=== PATIENT | female | born 1995 | race Hispanic/Latino ===

== ENCOUNTER 2017-01-10 13:13 | Emergency (ER) | payer OTHER ==
[~2017-01-10] VITALS: Ht 157.5 cm; Wt 56.7 kg
[2017-01-10] MEDS ORDERED: NS 1,000 ML IV ONE (14:15)
[2017-01-10] MEDS ORDERED: ONDANSETRON 4MG/2ML VIAL (J2405) IV ONE (14:15)
[2017-01-10 15:29] LABS: BASO % 0.1 % (0.0-1.0); EOS # 0.1 K/mm3 (0.0-0.50); EOS % 0.7 % (0.0-3.0); LARGE UNSTAINED CELL # 0.1 K/mm3 (0.0-0.4); LARGE UNSTAINED CELL % 0.5 % (0.0-4.0); LYMPH % 8.8 % (24.0-44.0); MEAN CORPUSCULAR HEMOGLOBIN 32.4 pg (27.0-33.0); MEAN CORPUSCULAR VOLUME 92.5 fl (80.0-96.0); MONO # 0.3 K/mm3 (0.0-0.8); MONO % 2.7 % (0.0-5.0); NEUTROPHILS % 87.1 % (36.0-66.0); PLATELET COUNT, AUTOMATED 297 k/mm3 (150-450); RED CELL DISTRIBUTION WIDTH 12.4 % (11.5-14.5); WHITE BLOOD COUNT 10.3 K/mm3 (4.0-10.0)
[2017-01-10 15:47] LABS: ALBUMIN 3.9 GM/DL (3.2-5.2); ALBUMIN/GLOBULIN RATIO 1.08 (1.00-1.93); ALKALINE PHOSPHATASE 53 U/L (45-117); ALT/SGPT 12 U/L (12-78); ANION GAP 13 MEQ/L (8-16); AST/SGOT 16 U/L (15-37); BILIRUBIN,DIRECT 0.1 MG/DL (0.0-0.2); BILIRUBIN,TOTAL 0.6 MG/DL (0.2-1.0); BLOOD UREA NITROGEN 7 MG/DL (7-18); CALCIUM LEVEL 8.6 MG/DL (8.5-10.1); CARBON DIOXIDE LEVEL 21 MEQ/L (21-32); CHLORIDE LEVEL 105 MEQ/L (98-107); CREATININE FOR GFR 0.46 MG/DL (0.55-1.02); GLOMERULAR FILTRATION RATE > 60.0 (>60); GLUCOSE, FASTING 80 MG/DL (70-105); POTASSIUM SERUM 4.1 MEQ/L (3.5-5.1); SODIUM LEVEL 139 MEQ/L (136-145); TOTAL PROTEIN 7.5 GM/DL (6.4-8.2)
[2017-01-10] MEDS ORDERED: ZOFR4TAB3 PO (15:54)
[2017-01-10] MEDS ORDERED: METR500T10 PO (15:56)
[2017-01-10 16:00] VITALS: BP 123/76
--- NOTE | 2017-01-11 07:38 | REP ---
OB ULTRASOUND: Real-time sonographic evaluation of the gravid uterus is performed utilizing transabdominal and endovaginal technique. There is a single living intrauterine gestation with an estimated gestational age of 6 weeks 3 days based on a crown-rump length of 6 mm. EDC 09/02/2017. heart rate 109 beats per minute. There is no subchorionic hemorrhage. Cystic structure of the right ovary probably represents a corpus luteum with a maximum diameter of 2.1 cm. This cystic structure is complex. There is no evidence of ovarian torsion with blood flow seen in each ovary with duplex Doppler evaluation. Signed by Cheng Ritter MD 01/11/2017 04:09 P
== END 2017-01-10 16:40 | disposition home or self-care (01) ==
LOC: M ED 14:27
DX: O23.591 Infection of other part of genital tract in pregnancy, first trimester (principal); Z3A.01 Less than 8 weeks gestation of pregnancy; O99.281 Endocrine, nutritional and metabolic diseases complicating pregnancy, first trimester; E28.2 Polycystic ovarian syndrome; Z87.891 Personal history of nicotine dependence
CPT/HCPCS: 76801; 76817; 80048; 80076; 81001; 83690; 84702; 85025; 87210; 87491; 87591; 93976; 96361; 96374; 99283; J2405

== ENCOUNTER → 2017-03-26 | Outpatient (CLI) | payer OTHER ==
[~2017-03-26] MED LIST: METR500T10 PO; ZOFR4TAB3 PO
[2017-03-26 18:08] LABS: BASO % 0.4 % (0.0-1.0); EOS # 0.1 K/mm3 (0.0-0.50); EOS % 0.8 % (0.0-3.0); LARGE UNSTAINED CELL # 0.1 K/mm3 (0.0-0.4); LARGE UNSTAINED CELL % 0.9 % (0.0-4.0); LYMPH # 1.6 K/mm3 (1.5-6.5); LYMPH % 19.1 % (24.0-44.0); MEAN CORPUSCULAR HEMOGLOBIN 32.6 pg (27.0-33.0); MEAN CORPUSCULAR HGB CONC 33.3 g/dl (32.0-36.5); MONO # 0.4 K/mm3 (0.0-0.8); MONO % 4.4 % (0.0-5.0); NEUTROPHILS # 6.3 K/mm3 (1.8-7.7); NEUTROPHILS % 74.5 % (36.0-66.0); PLATELET COUNT, AUTOMATED 295 k/mm3 (150-450); RED CELL DISTRIBUTION WIDTH 12.8 % (11.5-14.5); WHITE BLOOD COUNT 8.5 K/mm3 (4.0-10.0)
[2017-03-29 12:27] LABS: HBsAg Prenatal NEGATIVE (NEGATIVE)
== END ==
LOC: M SMT 14:19
PROVIDERS: ATTEND Advanced Practice Midwife
DX: Z34.81 Encounter for supervision of other normal pregnancy, first trimester (principal); Z36 Encounter for antenatal screening of mother; Z3A.00 Weeks of gestation of pregnancy not specified

== ENCOUNTER → 2017-04-07 | Outpatient (CLI) | payer OTHER ==
--- NOTE | 2017-04-07 21:27 | REP ---
Clinical: Anatomical evaluation. Comparison: 01/10/2017 . Findings: Examination demonstrates a single live intrauterine in cephalic presentation. motion is identified by technologist. Placenta is noted posteriorly and grade zero without evidence for placenta previa or abruption. Amniotic fluid volume is normal. Cervix measures 3.3 cm in length and appears closed. No evidence for nuchal cord. Gestational age by LMP 18 weeks 4 days with GIULIA 09/04/2017 . Gestational age by current measurements 19 weeks 2 days with GIULIA 08/30/2017 . FHR equals 147 beats per minute. BPD 4.4 cm 19 weeks 3 days HC 16.6 cm 19 weeks 2 days AC 13.6 cm 19 weeks 1 day FL 3.1 cm 18 weeks 3 days HL 2.9 cm 19 weeks 2 days HC/AC ratio 1.22 Estimated weight 283 grams ( 72nd percentile). Anatomical assessment demonstrates normal structures including cranium, choroid plexus, cavum, cerebellum/posterior fossa, facial features, lungs, four-chamber heart/ventricular outflow tracts, diaphragm, stomach, cord insertion/three-vessel cord, kidneys/bladder, spine, and extremities. Impression: 1. Single live intrauterine in cephalic presentation demonstrating appropriate interval growth. 2. Anatomical assessment is complete and normal. Signed by Reggie Mejias MD 04/07/2017 09:19 P
== END ==
LOC: M RAD 10:37
PROVIDERS: ATTEND Advanced Practice Midwife
DX: Z36 Encounter for antenatal screening of mother (principal)

== ENCOUNTER → 2017-04-12 | Outpatient (CLI) | payer OTHER | LOC: M SMT 15:41 | PROVIDERS: ATTEND Advanced Practice Midwife | DX: Z36 Encounter for antenatal screening of mother (principal); Z3A.00 Weeks of gestation of pregnancy not specified ==

== ENCOUNTER → 2017-06-02 | Outpatient (CLI) | payer OTHER ==
[~2017-06-02] MED LIST changes: +ACET50TA PO; +COLA100C5 PO; +IBUP-1114 PO; +METR1TAB66 PO; -METR500T10 PO; +PRENTAB9 PO
[2017-06-02 13:18] LABS: MEAN CORPUSCULAR HEMOGLOBIN 32.4 pg (27.0-33.0); MEAN CORPUSCULAR HGB CONC 33.7 g/dl (32.0-36.5); MEAN CORPUSCULAR VOLUME 96.1 fl (80.0-96.0); RED CELL DISTRIBUTION WIDTH 12.8 % (11.5-14.5)
[2017-06-02 13:43] LABS: FREE T4 0.99 NG/DL (0.76-1.46)
== END ==
LOC: M SMT 10:29
PROVIDERS: ATTEND Advanced Practice Midwife
DX: Z34.82 Encounter for supervision of other normal pregnancy, second trimester (principal); Z36 Encounter for antenatal screening of mother; Z3A.00 Weeks of gestation of pregnancy not specified

== ENCOUNTER → 2017-08-04 | Outpatient (REF) | payer OTHER | LOC: M LAB REF 13:02 | PROVIDERS: ATTEND Advanced Practice Midwife | DX: Z34.03 Encounter for supervision of normal first pregnancy, third trimester (principal); Z36 Encounter for antenatal screening of mother; Z3A.00 Weeks of gestation of pregnancy not specified ==

== ENCOUNTER 2017-08-30 13:03 | Outpatient (RCR) | payer OTHER ==
[~2017-08-30 13:03] MED LIST changes: -ACET50TA PO; -COLA100C5 PO; -IBUP-1114 PO; -PRENTAB9 PO
[2017-09-07] MEDS ORDERED: PRENTAB9 PO (10:31)
[2017-09-07] MEDS ORDERED: COLA100C5 PO (10:34)
[2017-09-07] MEDS ORDERED: IBUP-1114 PO (10:34)
[2017-09-07] MEDS ORDERED: ACET50TA PO (10:34)
== END 2017-09-07 | disposition home or self-care (01) ==
LOC: M OT 13:03
PROVIDERS: ATTEND Nurse Practitioner Family
DX: Z51.89 Encounter for other specified aftercare (principal); R20.2 Paresthesia of skin

== ENCOUNTER 2017-09-05 11:14 | Inpatient (IN) | payer OTHER ==
[2017-09-05] VITALS (40 sets, daily range): BP systolic 80–131; BP diastolic 45–78
[~2017-09-05] VITALS: Ht 157.5 cm; Wt 78.6 kg
[2017-09-05] MEDS ORDERED: LACTATED RINGER'S 1000 ML IV STA (11:43)
[2017-09-05 12:16] LABS: MEAN CORPUSCULAR HEMOGLOBIN 30.3 pg (27.0-33.0); MEAN CORPUSCULAR HGB CONC 34.7 g/dl (32.0-36.5); MEAN CORPUSCULAR VOLUME 87.3 fl (80.0-96.0); PLATELET COUNT, AUTOMATED 276 10^3/uL (150-450); RED CELL DISTRIBUTION WIDTH 13.5 % (11.5-14.5)
--- NOTE | 2017-09-05 13:02 | HPEPDOC ---
Obstetrical History & Physical General Date of Admission Sep 05, 2017 at 11:50 History of Present Illness Patient is a 22-year-old female who is a at 40.1 weeks gestation with an GIULIA of 09/04/17 based off of her LMP and and consistent with her 1st trimester ultrasound. She initiated care in her 1st trimester at [facility]. Her has been uncomplicated. She presents to L&D with complaints of contractions since 1000 this morning. Reports active movement. Denies leaking of fluid and vaginal bleeding. Chief Complaint: Active Labor Information Provided By: Patient Age: 22 : 1 Term: 0 Pre-term: 0 Abortions: 0 Livin Care Care: Good Care Dating Final EDC: Sep 04, 2017 Final EDC by: LMP LMP: Nov 28, 2016 EGA at Admission: 40.1 Antepartum Course Height (inches): 62 Pre- weight (lbs.): 125 Admission Weight (lbs.): 173 Change in Weight (lbs.): 48 Past Medical History Past Obstetrical History : Past Obstetrical History: Primgravida [employer] History: History of STD (hx of chlamydia) Past Medical History Medical History varicella as a child Surgical History: Denies/None Family History Significant Family History: No pertinent family hx Social History Marital Status: Single Family situation: Spouse/partner home Psychosocial History: Depression * Smoker: non-smoker Alcohol: Denies Drugs: denies Allergies Coded Allergies: No Known Allergies (Unverified , 01/10/17) Physical Examination Physical Examination GENERAL: Alert and oriented times three. BREAST: . ABDOMEN: Gravid and non-tender to touch. FETUS: Is vertex (VTX) by sterile vaginal examination (SVE), fetus is vertex ( VTX) by Olman. HEART RATE: Regular rate and rhythm. LUNGS: Clear to auscultation (CTA). EXTREMITIES: No edema. No clonus. Laboratory Data Urine Culture: No Growth Pertinent Laboratoy Data Blood Type: A+ RBC Antibody Screen: Negative HIV: Negative Hepatitis C: Negative Rapid Plasma Reagin: Nonreactive Rubella: Immune Chlamydia/Gonorrhea: Negative Group B Streptococcus: Negative Quad Screen Test: Negative Glucose Tolerance Test: 81 Vaginal Examination Dilation: 5 cm Effacement: 80+% Station: -1 Cervical Consistency: Soft Cervical Position: Middle Presentation: Cephalic presentation Position: Vertex (occiput) Assessment Heart Rate (FHR): 150 Variability: Moderate Accelerations: Positive Decelerations: None Tocometer Contractions: Yes Frequency: other (1 TO 4 MINUTES) Multi-drug resistant Organism: No history of MDRO Assessment/Plan Assessment IUP at 40.1 weeks gestation active labor at term Negative GBS Category I FHR tracing Plan Admit to L&D. OOB ad gage. Diet: clears Group B Streptococcus (GBS) negative. Labs and intravenous (IV) per unit protocol. Lactated Ringers (LR): per order. Anesthesia consult. Anticipate normal spontaneous delivery (). YECENIA CHUN CNM Sep 05, 2017 13:02
[2017-09-05] MEDS ORDERED: FENTANYL 2MCG/ML ROPIVACAINE 0.2% IN 0.9% NACL 200ML IVBAG As Ordered ONE (13:06)
[2017-09-05] MEDS ORDERED: REFRIGERATOR IV KEYS XX PRN (15:15)
[2017-09-05] MEDS ORDERED: ONDANSETRON 4MG/2ML VIAL (J2405) IV PRN (15:15)
[2017-09-05] MEDS ORDERED: LACTATED RINGER'S 1000 ML IV PRN (15:15)
[2017-09-05] MEDS ORDERED: EPIDURAL/PCA KEYS XX PRN (15:15)
[2017-09-05] MEDS ORDERED: diphenhydrAMINE INJ 50MG/ML VIAL (J1200) IV PRN (15:15)
[2017-09-05] MEDS ORDERED: EPIDURAL COMMENT XX SCH (15:15)
[2017-09-05] MEDS ORDERED: NALOXONE INJ 0.4 MG/1 ML VIAL (J2310) IV PRN (15:15)
[2017-09-05] MEDS ORDERED: FENTANYL/ROPIVACAINE/NACL BAG 200 ML EPIDURAL SCH (15:15)
[2017-09-05] MEDS: ePHEDrine SULFATE 25 MG/5 ML(5MG/ML) SYRINGE IV PRN ×4 (15:19→18:27)
[2017-09-05] MEDS ORDERED: OXYTOCIN DRIP 30 UNITS in APPROPRIATE DILUENT 1 EA IV SCH ×2 (16:15→21:40)
[2017-09-05] MEDS: LR 1,000 ML IV SCH ×2 (16:22→18:27)
--- NOTE | 2017-09-05 16:35 | IPNPDOC ---
Text Note Date of Service The patient was seen on 09/05/17. NOTE SUBJECTIVE: Patient reports she is very comfortable with her epidural. OBJECTIVE: Received 3 doses of epinephrine due to low BP's. FHR: 150, moderate variability, positive accelerations, no decelerations. Contractions every 3 to 6 minutes. SVE: 5-6/90/-1, anterior, moderate amount of bloody show. Bulging bag of fluid. Assessment: IUP at 40.1 weeks gestation, active labor, Category I FHR tracing Plan: Pitocin to be started per order after counseling patient and family. Patient agrees with pitocin augmentation of labor. Anticipate cervical change and . Consider AROM. VS,Fishbone, I+O VS, Fishbone, I+O Laboratory Tests 09/05/17 12:09 Red Blood Count 4.00, Mean Corpuscular Volume 87.3, Mean Corpuscular Hemoglobin 30.3, Mean Corpuscular Hemoglobin Concent 34.7, Red Cell Distribution Width 13.5 Vital Signs Date Time Temp Pulse Resp B/P (MAP) Pulse Ox O2 Delivery O2 Flow Rate FiO2 09/05/17 14:03 82 105/54 (71) 09/05/17 11:39 98.7 20 YECENIA CHUN CNM Sep 05, 2017 16:35
[2017-09-05] MEDS ORDERED: ePHEDrine INJ 50 MG/ML VIAL IV STA (18:22)
[2017-09-05] MEDS ORDERED: ePHEDrine SULFATE 25 MG/5 ML(5MG/ML) SYRINGE IV PRN (18:30)
[2017-09-05] MEDS ORDERED: MEASLES,MUMPS,RUBELLA VACCINE INJ (MMR-II) (90707) SC SCH (21:45)
[2017-09-05] MEDS ORDERED: METHYLERGONOVINE MALEATE 0.2 MG TAB PO PRN (21:45)
[2017-09-05] MEDS ORDERED: ANUSOL HC CREAM 30GM TOP PRN (21:45)
[2017-09-05] MEDS ORDERED: RHOGAM 300 MCG (1500 IU) INJ (J2790) IM SCH (21:45)
--- NOTE | 2017-09-05 22:00 | DNPDOC ---
[facility] Delivery Note Delivery Note DATE OF DELIVERY: 09/05/17 AT 203. PROCEDURE: Spontaneous vaginal delivery. PROVIDER: Yecenia Langford CNM, MARINA ANESTHESIA: epidural. ESTIMATED BLOOD LOSS: 300 mL. FINDINGS: 8 pounds 1 ounce, 3660 grams, male infant, Score 9/9. DELIVERY SUMMARY: Patient is a 22-year-old female who is now a at 40.1 weeks gestation who presented to L&D in active labor. She received an epidural for pain management and 51 cc of Pitocin to augment her labor. The patient progressed to fully dilated at 1920 and pushed to a of a living male in the OA position with restitution to RAPHAEL. The anterior shoulder delivered with ease and the corpus immediately followed. The baby was placed on the maternal abdomen active and crying. The cord was clamped x2 after 4 minutes and cut by the FOB. A 3-vessel cord was noted. The placenta delivered spontaneously and intact at 2038 via Damion mechanism. Uterine hemostasis achieved by rapid infusion of IV Pitocin and fundal massage. The perineum and vagina was inspected and found to have a 2nd degree perineal laceration that was repaired with a 3.[address]-1 and bilateral labial lacerations that were repaired with a 4.0 vicryl rapid SH to achieve hemostasis. Mom plans to breastfeed. They are naming their son "Nnamdi." Both mom and baby are in stable condition. YECENIA LANGFORD CNM Sep 05, 2017 22:00
[2017-09-05] MEDS: IBUPROFEN 800 MG TAB PO PRN (22:17)
[2017-09-06] MEDS: ACETAMINOPHEN 500 MG TAB PO PRN ×3 (01:04→17:23)
[2017-09-06] MEDS: DIBUCAINE 1% OINTMENT 30GM TOP PRN (05:29)
[2017-09-06] MEDS: IBUPROFEN 800 MG TAB PO PRN ×2 (05:30→14:19)
[2017-09-06 05:37] VITALS: BP 105/68
[2017-09-06] MEDS: PRENATAL VITAMINS CHEWABLE TABLET PO SCH (09:44)
[2017-09-06] MEDS: DOCUSATE SODIUM 100 MG CAP PO PRN ×2 (14:21→23:26)
[2017-09-06 18:10] VITALS: BP 95/58
[2017-09-07] MEDS: IBUPROFEN 800 MG TAB PO PRN ×2 (01:08→11:31)
[2017-09-07] MEDS: ACETAMINOPHEN 500 MG TAB PO PRN (04:46)
[2017-09-07 06:10] VITALS: BP 106/55
[2017-09-07] MEDS ORDERED: medroxyPROGESTERone ACET IM SUSP 150 MG/ML VIAL (J1050) IM ONE (08:00)
[2017-09-07] MEDS: PRENATAL VITAMINS CHEWABLE TABLET PO SCH (09:03)
[2017-09-07] MEDS ORDERED: PRENTAB9 PO (10:31)
[2017-09-07] MEDS ORDERED: COLA100C5 PO (10:34)
[2017-09-07] MEDS ORDERED: IBUP-1114 PO (10:34)
[2017-09-07] MEDS ORDERED: ACET50TA PO (10:34)
[2017-09-07] MEDS: DIBUCAINE 1% OINTMENT 30GM TOP PRN (11:34)
== END 2017-09-07 12:30 | disposition home or self-care (01) | DRG 560 ==
LOC: M LDO 11:14 → M LDI 11:50 → M OBS 22:40
PROVIDERS: ADMIT Advanced Practice Midwife; ATTEND Advanced Practice Midwife
PROC: 10E0XZZ Delivery of Products of Conception, External Approach (ICD-10-PCS; principal; 2017-09-05)
PROC: 0KQM0ZZ Repair Perineum Muscle, Open Approach (ICD-10-PCS; 2017-09-05)
PROC: 0HQ9XZZ Repair Perineum Skin, External Approach (ICD-10-PCS; 2017-09-05)
DX: O48.0 Post-term pregnancy (principal); Z3A.40 40 weeks gestation of pregnancy; O70.1 Second degree perineal laceration during delivery; O70.0 First degree perineal laceration during delivery; Z37.0 Single live birth

== ENCOUNTER → 2018-11-28 | Outpatient (REF) | payer OTHER ==
[~2018-11-28] MED LIST changes: +COLA100C5 PO; +IBUP-1114 PO; +MAPA500T2 PO; +METR-201 PO; -METR1TAB66 PO; +PRENTAB9 PO; +ZOFR4TAB14 PO; -ZOFR4TAB3 PO
== END ==
LOC: M LAB REF 13:30
PROVIDERS: ATTEND Advanced Practice Midwife
DX: Z12.4 Encounter for screening for malignant neoplasm of cervix (principal)

== ENCOUNTER → 2020-01-19 | Outpatient (REF) | payer OTHER ==
[~2020-01-19] MED LIST changes: -METR-201 PO; +METR-265 PO
[2020-01-19 15:28] LABS: CHLAMYDIA DNA AMPLIFICATION NEGATIVE (NEGATIVE); GC DNA AMPLIFICATION NEGATIVE (NEGATIVE)
== END ==
LOC: M SFHCWAGY 12:56
PROVIDERS: ATTEND Advanced Practice Midwife
DX: Z76.89 Persons encountering health services in other specified circumstances (principal)

== ENCOUNTER 2020-06-16 17:30 | Emergency (ER) | payer OTHER ==
[2020-06-16] MEDS ORDERED: ONDANSETRON 4MG/2ML VIAL As Ordered ONE (17:50)
[2020-06-16] MEDS ORDERED: ONDANSETRON 4MG/2ML VIAL ONE (17:50)
[2020-06-16] MEDS ORDERED: KETOROLAC 30 MG/ML 1ML VIAL ONE (17:50)
[2020-06-16] MEDS ORDERED: KETOROLAC 30 MG/ML 1ML VIAL As Ordered ONE (17:50)
[2020-06-16] MEDS ORDERED: METOCLOPRAMIDE INJ 10MG/2ML VIAL (J2765 PER 1) ONE (19:28)
[2020-06-16] MEDS ORDERED: METOCLOPRAMIDE INJ 10MG/2ML VIAL (J2765 PER 1) As Ordered ONE (19:28)
[2020-06-16] MEDS ORDERED: ISOVUE-370 76% 100ML VIAL As Ordered ONE (19:47)
[2020-06-16] MEDS ORDERED: ONDANSETRON 4 MG ORAL DISINTEGRATING TAB As Ordered ONE (21:16)
[2020-06-16] MEDS ORDERED: ONDANSETRON 4 MG ORAL DISINTEGRATING TAB ONE (21:16)
[2020-08-01 08:23] LABS: APPEARANCE, URINE CLEAR (CLEAR); BACTERIA, URINE AUTO NEGATIVE (NEGATIVE); BILIRUBIN, URINE AUTO NEGATIVE (NEGATIVE); BLOOD, URINE BLOOD 2+ (NEGATIVE); COLOR, URINE YELLOW (YELLOW); GLUCOSE, URINE (UA) AUTO NEGATIVE (NEGATIVE); KETONE, URINE AUTO 1+ mg/dL (NEGATIVE); LEUKOCYTE ESTERASE, URINE AUTO TRACE (NEGATIVE); NITRITE, URINE AUTO NEGATIVE (NEGATIVE); PROTEIN, URINE AUTO NEGATIVE (NEGATIVE); RBC, URINE AUTO 4 /HPF (0-3); SPECIFIC GRAVITY URINE AUTO 1.004 (1.002-1.035); SQUAMOUS EPITHELIAL CELL UR AU 1 /HPF (0-6); UROBILINOGEN, URINE AUTO 0.2 mg/dL (0.0-2.0); WBC, URINE AUTO 2 /HPF (0-3)
[2020-08-01 18:37] LABS: BASO % 0.3 % (0.0-1.0); EOS % 0.2 % (0.0-3.0); HEMATOCRIT 47.2 % (36.0-47.0); HEMOGLOBIN 16.3 g/dl (12.0-15.5); LYMPH # 2.1 10^3/uL (1.5-5.0); MEAN CORPUSCULAR HEMOGLOBIN 30.7 pg (27.0-33.0); MEAN CORPUSCULAR HGB CONC 34.5 g/dl (32.0-36.5); MEAN CORPUSCULAR VOLUME 88.9 fl (80.0-96.0); MONO # 0.9 10^3/uL (0.0-0.8); MONO % 6.6 % (0.0-5.0); NEUTROPHILS # 10.1 10^3/uL (1.5-8.5); NEUTROPHILS % 76.7 % (36.0-66.0); PLATELET COUNT, AUTOMATED 342 10^3/uL (150-450); RED BLOOD COUNT 5.31 10^6/uL (4.00-5.40); WHITE BLOOD COUNT 13.2 10^3/uL (4.0-10.0)
[2020-09-01 02:36] LABS: ALBUMIN 4.4 GM/DL (3.2-5.2); ALT/SGPT 16 U/L (12-78); BILIRUBIN,DIRECT 0.2 MG/DL (0.0-0.2); BILIRUBIN,TOTAL 0.8 MG/DL (0.2-1.0); BLOOD UREA NITROGEN 9 MG/DL (7-18); CALCIUM LEVEL 9.5 MG/DL (8.5-10.1); CARBON DIOXIDE LEVEL 29 MEQ/L (21-32); CHLORIDE LEVEL 101 MEQ/L (98-107); GLOMERULAR FILTRATION RATE > 60.0 (>60); GLUCOSE, FASTING 102 MG/DL (70-100); LIPASE 39 U/L (73-393); POTASSIUM SERUM 3.4 MEQ/L (3.5-5.1); SODIUM LEVEL 136 MEQ/L (136-145); TOTAL PROTEIN 8.3 GM/DL (6.4-8.2)
[2020-09-01 02:37] LABS: HCG, SERUM QUALITATIVE NEGATIVE (NEGATIVE)
== END 2020-06-16 21:30 | disposition home or self-care (01) ==
LOC: M ED 17:30
DX: R11.2 Nausea with vomiting, unspecified (principal); R19.7 Diarrhea, unspecified; R10.9 Unspecified abdominal pain; Z79.3 Long term (current) use of hormonal contraceptives
CPT/HCPCS: 74021; 74177; 80048; 80076; 81001; 83690; 84703; 85025; 96374; 96375; 99284; J1885; J2405; J2765; Q0162; Q9967

== ENCOUNTER → 2020-06-18 | Outpatient (REF) | payer OTHER | LOC: M LAB REF 13:51 | PROVIDERS: ATTEND Physician Assistant | DX: A09 Infectious gastroenteritis and colitis, unspecified (principal) ==

== ENCOUNTER → 2020-12-13 | Outpatient (REF) | payer OTHER | LOC: M SFHCWAGY 16:42 | PROVIDERS: ATTEND Advanced Practice Midwife | DX: R35.0 Frequency of micturition (principal) ==

== ENCOUNTER → 2021-01-17 | Outpatient (CLI) | payer OTHER ==
--- NOTE | 2021-01-17 12:58 | REP ---
INDICATION: R10.2 PELVIC PAIN COMPARISON: None. TECHNIQUE: Transabdominal pelvic ultrasound followed by transvaginal examination for better evaluation of the endometrium and adnexa with color evaluation of the ovaries. FINDINGS: Bladder is under distended. Anteverted uterus measures 7.6 x 4.0 x 5.0 cm. The endometrial complex measures 9 mm thickness excluding small amount of endocervical fluid. IUD is identified in the lower uterine segment extending into the cervix. Bilateral ovaries are normal in appearance and vascularity without evidence for torsion. Right ovary measures 3.0 x 1.3 x 2.3 cm; left ovary measures 2.9 x 2.1 x 2.4 cm with 1.8 cm complex echogenic structure possibly representing hemorrhagic cyst.; No pelvic fluid or adnexal mass lesion. IMPRESSION: 1. IUD identified extending from the lower uterine segment into the cervical region. Small amount of endometrial fluid noted. 2. Complex 1.8 cm structure in the left ovary possibly hemorrhagic cyst. Consider re-evaluation in 4-6 weeks to evaluate for resolution. <Electronically signed by Reggie Mejias > 01/17/21 [id number]
== END ==
LOC: M WHC 12:05
PROVIDERS: ATTEND Advanced Practice Midwife
DX: R10.2 Pelvic and perineal pain (principal); Z97.5 Presence of (intrauterine) contraceptive device

== ENCOUNTER → 2021-01-17 | Outpatient (CLI) | payer OTHER ==
[2021-01-17 15:55] LABS: BASO % 0.4 % (0.0-1.0); EOS # 0.1 10^3/uL (0.0-0.5); EOS % 0.9 % (0.0-3.0); HEMATOCRIT 40.2 % (36.0-47.0); HEMOGLOBIN 13.4 g/dl (12.0-15.5); LYMPH # 1.8 10^3/uL (1.5-5.0); LYMPH % 22.3 % (24.0-44.0); MEAN CORPUSCULAR HGB CONC 33.3 g/dl (32.0-36.5); MEAN CORPUSCULAR VOLUME 90.1 fl (80.0-96.0); MONO # 0.7 10^3/uL (0.0-0.8); MONO % 8.2 % (2.0-8.0); NEUTROPHILS # 5.4 10^3/uL (1.5-8.5); NEUTROPHILS % 67.9 % (36.0-66.0); PLATELET COUNT, AUTOMATED 293 10^3/uL (150-450); RED BLOOD COUNT 4.46 10^6/uL (4.00-5.40); WHITE BLOOD COUNT 7.9 10^3/uL (4.0-10.0)
[2021-01-17 16:18] LABS: C REACTIVE PROTEIN QUANTITATIV < 0.30 MG/DL (0.00-0.30); RHEUMATOID FACTOR QUANT < 10.0 IU/ML (<15.0); URIC ACID 3.4 MG/DL (2.6-6.0)
[2021-01-17 16:26] LABS: ERYTHROCYTE SEDIMENTATION RATE 8 mm/hr (0-20)
[2021-01-17 16:41] LABS: VITAMIN B12 LEVEL 588 PG/ML (247-911)
== END ==
LOC: M PLALAB 12:40
PROVIDERS: ATTEND Physician Assistant Surgical
DX: M79.601 Pain in right arm (principal)